=== PATIENT | female | born 1945 | race Caucasian/White ===

== ENCOUNTER 2016-06-13 10:28 | Outpatient (CLI) | payer MEDICARE, MEDICAID | END 2016-06-13 10:29 | disposition home or self-care (01) | DX: Z12.31 Encounter for screening mammogram for malignant neoplasm of breast (principal); Z80.3 Family history of malignant neoplasm of breast ==

== ENCOUNTER 2016-06-17 09:05 | Outpatient (CLI) | payer MEDICARE, MEDICAID | END 2016-06-17 09:06 | disposition home or self-care (01) | DX: E11.9 Type 2 diabetes mellitus without complications (principal); I10 Essential (primary) hypertension; K31.9 Disease of stomach and duodenum, unspecified ==

== ENCOUNTER 2016-09-23 06:38 | Outpatient (CLI) | payer MEDICARE, MEDICAID ==
[2016-09-23] MEDS ORDERED: GADOBUTROL 10 MMOL/10 ML VIAL IVP ONE (08:24)
== END 2016-09-23 06:39 | disposition home or self-care (01) ==
DX: Q28.3 Other malformations of cerebral vessels (principal); I67.82 Cerebral ischemia; Z86.73 Personal history of transient ischemic attack (TIA), and cerebral infarction without residual deficits
CPT/HCPCS: 70553; 82565; A9585

== ENCOUNTER 2017-02-07 10:17 | Outpatient (CLI) | payer MEDICARE, MEDICAID ==
[2017-02-07 18:36] LABS: CALCIUM 9.2 mg/dL (8.5-10.3); CREATININE 0.7 mg/dL (0.4-1.0); POTASSIUM 3.9 mmol/L (3.5-5.0)
[2017-02-07 20:32] LABS: HEMOGLOBIN A1C 1.14 g/dL
== END 2017-02-07 10:18 | disposition home or self-care (01) ==
LOC: LAB.F 10:17
PROVIDERS: ATTEND Nurse Practitioner Family
DX: E11.9 Type 2 diabetes mellitus without complications (principal)
CPT/HCPCS: 36415; 80048; 83036

== ENCOUNTER 2017-03-03 12:44 | Outpatient (CLI) | payer MEDICARE, MEDICAID ==
--- NOTE | 2017-03-03 15:58 | Ultrasound Report ---
BLADDER ULTRASOUND: 03/03/2017 CLINICAL INDICATION: Incontinence. TECHNIQUE: Real-time scanning was performed with sales and service representative static images obtained. FINDINGS: Prevoid, the urinary bladder measures 8.6 x 7.9 x 7.1 cm. The bladder wall appears normal. Bilateral ureteral jets are visualized. No postvoid residual is present. IMPRESSION: NORMAL BLADDER ULTRASOUND. JOB #: [id number] EXT JOB #:[id number]
== END 2017-03-03 12:45 | disposition home or self-care (01) ==
LOC: DI 12:44
PROVIDERS: ATTEND Nurse Practitioner Family
DX: R32 Unspecified urinary incontinence (principal)
CPT/HCPCS: 76857

== ENCOUNTER 2017-05-05 13:20 | Outpatient (CLI) | payer MEDICARE, MEDICAID ==
[2017-05-05 19:09] LABS: CALCIUM 9.6 mg/dL (8.5-10.3); CREATININE 0.7 mg/dL (0.4-1.0)
[2017-05-05 20:15] LABS: HEMOGLOBIN A1C 0.79 g/dL
== END 2017-05-05 13:21 | disposition home or self-care (01) ==
LOC: LAB.S 13:20
PROVIDERS: ATTEND Nurse Practitioner Family
DX: E11.65 Type 2 diabetes mellitus with hyperglycemia (principal)
CPT/HCPCS: 36415; 80048; 83036

== ENCOUNTER 2017-08-08 14:30 | Outpatient (CLI) | payer MEDICARE, MEDICAID | END 2017-08-08 14:31 | disposition home or self-care (01) | LOC: RT.S 14:30 | PROVIDERS: ATTEND Nurse Practitioner Family | DX: R06.09 Other forms of dyspnea (principal); R07.9 Chest pain, unspecified | CPT/HCPCS: 93005 ==

== ENCOUNTER 2017-08-11 08:00 | Outpatient (CLI) | payer MEDICARE, MEDICAID ==
[2017-08-11 18:05] LABS: BASOPHILS % (AUTO) 0.7 %; EOSINOPHILS % (AUTO) 0.6 %; HGB - HEMOGLOBIN 11.6 g/dL (12.0-16.0); LYMPHOCYTES # (AUTO) 1.8 10^3/uL (1.5-3.5); LYMPHOCYTES % (AUTO) 26.1 %; MEAN CORPUSCULAR HEMOGLOBIN 25.9 pg (27.0-31.0); MEAN CORPUSCULAR HGB CONC 32.4 g/dL (32.0-36.0); MEAN CORPUSCULAR VOLUME 79.8 fL (81.0-99.0); MEAN PLATELET VOLUME 7.8 fL (7.9-10.8); MONOCYTES # (AUTO) 0.6 10^3/uL (0.0-1.0); NEUTROPHILS # (AUTO) 4.3 10^3/uL (1.5-6.6); NEUTROPHILS % (AUTO) 63.6 %; PLT - PLATELET COUNT 335 10^3/uL (130-450); RED CELL DISTRIBUTION WIDTH 13.7 % (12.0-15.0); WHITE BLOOD COUNT 6.7 x10^3/uL (4.8-10.8)
[2017-08-11 18:23] LABS: ALBUMIN 4.2 g/dL (3.2-5.5); ALBUMIN/GLOBULIN RATIO 1.2 (1.0-2.2); ALKALINE PHOSPHATASE 60 IU/L (42-121); ALT ALANINE AMINOTRANSFERASE 37 IU/L (10-60); AST ASPARTATE AMINOTRANSFERASE 29 IU/L (10-42); BILIRUBIN,TOTAL 0.5 mg/dL (0.2-1.0); BUN - BLOOD UREA NITROGEN 17 mg/dL (6-20); CARBON DIOXIDE - CO2 19 mmol/L (21-32); CHLORIDE 105 mmol/L (101-111); CHOL/HDL RATIO 3.5 (<4.4); CHOLESTEROL 105 mg/dL; CREATININE 0.8 mg/dL (0.4-1.0); GFR - MDRD 71 (>89); GLUCOSE 134 mg/dL (70-100); HDL CHOLESTEROL 30 mg/dL; LDL CHOLESTEROL,CALCULATED 53 mg/dL; LDL/HDL RATIO 1.8 (<4.4); SODIUM 135 mmol/L (135-145); TOTAL PROTEIN 7.8 g/dL (6.7-8.2); VLDL CHOLESTEROL 22 mg/dL
[2017-08-11 18:47] LABS: HB2 TOTAL 12.3 g/dL; HEMOGLOBIN A1C 0.74 g/dL; HEMOGLOBIN A1C % 7.7 % (4.6-6.2)
== END 2017-08-11 08:01 | disposition home or self-care (01) ==
LOC: LAB.S 08:00
PROVIDERS: ATTEND Nurse Practitioner Family
DX: R07.9 Chest pain, unspecified (principal); E11.9 Type 2 diabetes mellitus without complications; I10 Essential (primary) hypertension; R06.09 Other forms of dyspnea
CPT/HCPCS: 36415; 80053; 80061; 82043; 83036; 83721; 84443; 85025

== ENCOUNTER 2017-09-25 08:19 | Outpatient (CLI) | payer MEDICARE, MEDICAID ==
--- NOTE | 2017-09-25 11:11 | CARDIAC PROCEDURE NOTE ---
DATE OF SERVICE: 09/25/2017 Physician: AGUSTÍN Levin PRIMARY CARE PROVIDER: AGUSTÍN Levin PROCEDURE: Stress electrocardiogram. PROCEDURE SYMPTOMS: Dyspnea on exertion and atypical chest pain. CARDIAC RISK FACTORS: Age, hypertension, diabetes and hyperlipidemia. PREVIOUS CARDIAC PROCEDURES: NONE. CURRENT SYMPTOMATOLOGY: None. CLINICAL HISTORY: A 71-year-old female who is sedentary without known coronary artery disease. Her metoprolol was held for 24 hours. INITIAL RESTING VITAL SIGNS: Blood pressure 136/82, heart rate 82. Height 63 inches, weight 194 pounds, BMI 34.36. PROCEDURE AND FINDINGS: Patient's identity and verified. Consent signed. After resting echocardiogram images were obtained, the patient performed treadmill exercise using a modified [place] protocol, completing 5 minutes, 02 seconds and an estimated workload of 3.47 metabolic equivalents. Maximum blood pressure was 162/84 with a heart rate of 143 beats per minute or 95% of maximum predicted heart rate for age. The blood pressure response to exercise was normal. Patient stopped because she was out of breath and tiring, and revealed that she had mild chest pain toward the end of exercise, that was relieved by rest. The resting ECG demonstrated normal sinus rhythm with late transition. There was less than 0.5 ST segment depression and no ectopy was seen. Post exercise images were obtained immediately on cessation of exercise. FINAL IMPRESSION 1. Good quality test. 2. No electrocardiographic signs of ischemia, test incomplete, awaiting echocardiographic report. 3. Positive stress test clinically for angina. 4. No ectopy. 5. One minute heart rate recovery is good at heart rate of 125. 6. Under performed compared to predicted exercise time. TD: 09/25/2017 11:10 OZZY
[2017-09-25 17:14] VITALS: BP 132/74
== END 2017-09-25 08:20 | disposition home or self-care (01) ==
LOC: DI 08:19
PROVIDERS: ATTEND Nurse Practitioner Family
DX: R06.09 Other forms of dyspnea (principal); R07.9 Chest pain, unspecified; E11.9 Type 2 diabetes mellitus without complications; I10 Essential (primary) hypertension
CPT/HCPCS: 93351

== ENCOUNTER 2017-10-01 08:38 | Outpatient (CLI) | payer MEDICARE, MEDICAID ==
[2017-10-01 09:14] LABS: CREATININE 0.8 mg/dL (0.4-1.0)
[2017-10-01] MEDS ORDERED: GADOBUTROL 10 MMOL/10 ML SYRINGE IVP ONE (10:22)
--- NOTE | 2017-10-01 16:20 | MRI Report ---
EXAM: MRI BRAIN WITHOUT AND WITH CONTRAST EXAM DATE: 10/01/2017 10:14 AM. CLINICAL HISTORY: Cerebral cavernoma. COMPARISON: MRI brain 06/15/2014. TECHNIQUE: Multiplanar, multisequence T1-weighted and fluid-sensitive MR sequences of the brain were performed. Sequences optimized for routine evaluation. Other: None. IV Contrast: 9 mL Gadavist. FINDINGS: No restricted diffusion signal is present. A 9 mm focus of T1 hypointense signal with some peripheral T1 hyperintense signal is seen in the dors al right aspect of the lower medulla very near the cervicomedullary junction. There is a tiny amount of T2 hyperintense signal along its posterior lateral margin. There is magnetic susceptibility in thi s region. The appearance is stable since the more recent comparison study. Edema this lesion se en on the more remote comparison study has resolved Subcortical and deep white matter FLAIR hyperintensities in the cerebral hemisphere white matter are again seen. These are stable. T1 hypointense and T2 hyperintense signal is seen just superior to the posterior limb of the internal capsule on the right. This is stable. No extra-axial fluid collection is present. Ventricles are normal in size. No enhancing mass is identified in the brain parenchyma. Expected flow voids are seen in the major intracranial vessels at the skull base. No mass is present in either orbit. Cavernous sinuses enhance in symmetric fashion. 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 2. Stable small vessel ischemic change in the cerebral hemisphere white matter bilaterally. [facility] Referring Provider Line: [phone] SITE ID: [id number]
== END 2017-10-01 08:39 | disposition home or self-care (01) ==
LOC: LAB 08:38
PROVIDERS: ATTEND Psychiatry & Neurology Neurology
DX: Q28.3 Other malformations of cerebral vessels (principal)
CPT/HCPCS: 36415; 70553; 82565; A9585

== ENCOUNTER 2017-10-03 13:12 | Outpatient (CLI) | payer MEDICARE, MEDICAID | END 2017-10-03 13:13 | disposition home or self-care (01) | LOC: DI 13:12 | PROVIDERS: ATTEND Nurse Practitioner Family | DX: I51.9 Heart disease, unspecified (principal); I51.7 Cardiomegaly; I08.0 Rheumatic disorders of both mitral and aortic valves | CPT/HCPCS: 93306 ==

== ENCOUNTER 2018-01-30 12:34 | Outpatient (CLI) | payer MEDICARE, MEDICAID ==
[2018-01-30 18:53] LABS: CALCIUM 9.2 mg/dL (8.5-10.3); CREATININE 0.8 mg/dL (0.4-1.0)
[2018-01-30 18:54] LABS: HB2 TOTAL 12.5 g/dL; HEMOGLOBIN A1C 0.84 g/dL; HEMOGLOBIN A1C % 8.3 % (4.6-6.2)
== END 2018-01-30 12:35 | disposition home or self-care (01) ==
LOC: LAB.F 12:34
PROVIDERS: ATTEND Nurse Practitioner Family
DX: E11.9 Type 2 diabetes mellitus without complications (principal)
CPT/HCPCS: 36415; 80048; 83036

== ENCOUNTER 2018-03-12 12:55 | Outpatient (CLI) | payer MEDICARE, MEDICAID ==
--- NOTE | 2018-03-13 09:47 | Mammography Report ---
Reason: SCREENING MAMMO Procedure Date: 03/12/2018 Accession Number: [id number] / [id number] Procedure: MGS - Screening Mammo Dig Bilat CPT Code: FULL RESULT: EXAM: Screening Mammo Dig Bilat DATE: 03/12/2018 1:14 PM CLINICAL HISTORY: Routine screening TECHNIQUE: Bilateral CC and MLO views were obtained. COMPARISON: 03/10/2017, 02/08/2016, 02/03/2015 and 02/17/2013 FINDINGS: There are scattered fibroglandular densities. There is no significant interval change. No suspicious masses, clustered microcalcifications, or regions of architectural distortion are identified. Bilateral nodular densities are stable. IMPRESSION: Benign findings RECOMMENDATION: Routine annual screening unless otherwise clinically indicated. BIRADS CATEGORY 2: Benign findings STANDARD QUALIFYING STATEMENTS: 1. This examination was reviewed with the aid of Computer-Aided Detection (CAD). 2. A negative or benign imaging report should not delay biopsy if clinically suspicious findings are present. Consider surgical consultation if warrented. More than 5% of cancers are not identified by imaging. 3. Dense breasts may obscure an underlying neoplasm.
== END 2018-03-12 12:56 | disposition home or self-care (01) ==
LOC: DI.S 12:55
PROVIDERS: ATTEND Nurse Practitioner Family
DX: Z12.31 Encounter for screening mammogram for malignant neoplasm of breast (principal)
CPT/HCPCS: 77067

== ENCOUNTER 2018-07-31 12:13 | Outpatient (CLI) | payer MEDICARE, MEDICAID ==
--- NOTE | 2018-07-31 15:10 | XRAY Report ---
Reason: ANKLE STIFF,ANKLE JOINT PAINFUL ON MOVEMENT Procedure Date: 07/31/2018 Accession Number: [id number] / [id number] Procedure: XR - Ankle 3 View BILAT CPT Code: FULL RESULT: EXAMS: 1. RIGHT ANKLE RADIOGRAPHY 2. LEFT ANKLE RADIOGRAPHY EXAM DATE: 07/31/2018 12:24 PM. CLINICAL HISTORY: Ankle stiff, ankle joint painful on movement. COMPARISON: None. TECHNIQUE: 3 views each ankle. FINDINGS: Right Ankle: Bones: The bones are qualitatively osteopenic; this limits evaluation for underlying fractures or masses. No fracture or dislocation is seen. Mild inferior and mild posterior calcaneal enthesopathy. Joints: There is a small joint effusion. Ankle mortise is symmetric. No dislocation. Soft Tissues: Normal. No soft tissue swelling. Left Ankle: Bones: The bones are qualitatively osteopenic; this limits evaluation for underlying fractures or masses. No fracture or dislocation is seen. Mild inferior calcaneal enthesopathy. Joints: Normal. No effusion. No subluxations. The ankle mortise is normally aligned. Soft Tissues: Normal. No soft tissue swelling. IMPRESSION: Osteopenia with no fracture or dislocation detected. [facility]
== END 2018-07-31 12:14 | disposition home or self-care (01) ==
LOC: DI 12:13
PROVIDERS: ATTEND Nurse Practitioner
DX: M85.872 Other specified disorders of bone density and structure, left ankle and foot (principal); M85.871 Other specified disorders of bone density and structure, right ankle and foot

== ENCOUNTER 2018-08-18 09:03 | Outpatient (CLI) | payer MEDICARE, MEDICAID ==
[2018-08-18 17:50] LABS: BASOPHILS % (AUTO) 0.4 %; EOSINOPHILS % (AUTO) 0.6 %; LYMPHOCYTES # (AUTO) 1.6 10^3/uL (1.5-3.5); LYMPHOCYTES % (AUTO) 28.3 %; MEAN CORPUSCULAR HEMOGLOBIN 27.1 pg (27.0-31.0); MEAN CORPUSCULAR VOLUME 82.4 fL (81.0-99.0); MEAN PLATELET VOLUME 8.1 fL (7.9-10.8); MONOCYTES # (AUTO) 0.4 10^3/uL (0.0-1.0); MONOCYTES % (AUTO) 6.8 %; NEUTROPHILS # (AUTO) 3.7 10^3/uL (1.5-6.6); NEUTROPHILS % (AUTO) 63.9 %; PLT - PLATELET COUNT 331 10^3/uL (130-450); RED CELL DISTRIBUTION WIDTH 16.1 % (12.0-15.0); WHITE BLOOD COUNT 5.8 x10^3/uL (4.8-10.8)
[2018-08-18 18:06] LABS: ALBUMIN 4.3 g/dL (3.2-5.5); ALBUMIN/GLOBULIN RATIO 1.2 (1.0-2.2); ALKALINE PHOSPHATASE 62 IU/L (42-121); ALT ALANINE AMINOTRANSFERASE 62 IU/L (10-60); AST ASPARTATE AMINOTRANSFERASE 43 IU/L (10-42); BILIRUBIN,TOTAL 0.5 mg/dL (0.2-1.0); BUN - BLOOD UREA NITROGEN 16 mg/dL (6-20); CALCIUM 9.2 mg/dL (8.5-10.3); CARBON DIOXIDE - CO2 22 mmol/L (21-32); CHLORIDE 105 mmol/L (101-111); CHOL/HDL RATIO 3.2 (<4.4); CHOLESTEROL 124 mg/dL; CREATININE 0.7 mg/dL (0.4-1.0); GFR - MDRD 82 (>89); GLUCOSE 194 mg/dL (70-100); HDL CHOLESTEROL 39 mg/dL; LDL CHOLESTEROL,CALCULATED 63 mg/dL; LDL/HDL RATIO 1.6 (<4.4); SODIUM 137 mmol/L (135-145); TOTAL PROTEIN 7.8 g/dL (6.7-8.2); VLDL CHOLESTEROL 22 mg/dL
[2018-08-18 18:47] LABS: HB2 TOTAL 13.6 g/dL; HEMOGLOBIN A1C 0.85 g/dL; HEMOGLOBIN A1C % 7.9 % (4.6-6.2)
== END 2018-08-18 09:04 | disposition home or self-care (01) ==
LOC: LAB.F 09:03
PROVIDERS: ATTEND Nurse Practitioner
DX: Z00.00 Encounter for general adult medical examination without abnormal findings (principal); E11.65 Type 2 diabetes mellitus with hyperglycemia
CPT/HCPCS: 36415; 80053; 80061; 82043; 83036; 83721; 84443; 85025

== ENCOUNTER 2018-09-18 07:31 | Outpatient (CLI) | payer MEDICARE, MEDICAID ==
[2018-09-18] MEDS ORDERED: GADOBUTROL 10 MMOL/10 ML VIAL ONE (07:45)
[2018-09-18] MEDS ORDERED: GADOBUTROL 10 MMOL/10 ML VIAL IVP ONE (08:09)
--- NOTE | 2018-09-18 16:03 | MRI Report ---
Reason: CAVERNOMA Procedure Date: 09/18/2018 Accession Number: [id number] / [id number] Procedure: MRI - Brain W/WO CPT Code: FULL RESULT: EXAM: MRI BRAIN WITHOUT AND WITH CONTRAST EXAM DATE: 09/18/2018 08:43 AM. 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 COMPARISON: MRI brain 10/01/2017 and 06/15/2014. TECHNIQUE: Multiplanar, multisequence T1-weighted and fluid-sensitive MR sequences of the brain were performed. Sequences optimized for routine evaluation. Other: None. IV Contrast: 9 cc Gadavist. FINDINGS: No cerebellar tonsillar ectopia is present. No abnormal restricted diffusion signal is identified in the brain parenchyma. There is a focus of low T2 and FLAIR signal in the dorsal right lower medulla which demonstrates blooming on the gradient echo sequence. There is no significant T1 shortening in this region. There is no vasogenic edema in the adjacent medulla. The appearance is similar to the more remote comparison study. No focus of magnetic susceptibility has developed in the supratentorial brain. Age-appropriate prominence of the ventricles and sulci is stable. FLAIR hyperintensities are seen involving the subcortical and deep white matter of each cerebral hemisphere. This appearance is unchanged over the exams reviewed. A focus of T1 hypointense and T2 hyperintense signal is seen just superior to the posterior limb of the internal capsule on the right and is stable. There is an expected flow void in the major intracranial vessels at the skull base. There is an expected flow void in the superior sagittal sinus. There might be minimal enhancement at the periphery of this lesion. The appearance is unchanged on the postcontrast images. No enhancing mass is present in either cerebellopontine angle or internal auditory canal. No abnormal enhancement has developed in the supratentorial compartment. Expected enhancement is seen in the transverse sinus bilaterally and in the superior sagittal sinus. IMPRESSION: 1. Stable cavernous malformation in the lower dorsal right medulla over the exams reviewed. There are no MRI findings to suggest recent internal hemorrhage. This is stable dating back to the more remote comparison study from 06/15/2014. 2. Stable small vessel ischemic change in the cerebral hemisphere white matter bilaterally [facility]
== END 2018-09-18 07:32 | disposition home or self-care (01) ==
LOC: DI 07:31
PROVIDERS: ATTEND Psychiatry & Neurology Neurology
DX: Q28.3 Other malformations of cerebral vessels (principal); I67.82 Cerebral ischemia
CPT/HCPCS: 70553; A9585

== ENCOUNTER 2019-01-27 11:43 | Emergency (ER) | payer MEDICARE, MEDICAID ==
[2019-01-27 12:26] LABS: BASOPHILS % (AUTO) 0.3 %; EOSINOPHILS % (AUTO) 0.5 %; HGB - HEMOGLOBIN 13.5 g/dL (12.0-16.0); LYMPHOCYTES # (AUTO) 1.8 10^3/uL (1.5-3.5); LYMPHOCYTES % (AUTO) 23.7 %; MEAN CORPUSCULAR HEMOGLOBIN 28.7 pg (27.0-31.0); MEAN CORPUSCULAR VOLUME 84.3 fL (81.0-99.0); MONOCYTES # (AUTO) 0.5 10^3/uL (0.0-1.0); MONOCYTES % (AUTO) 6.5 %; NEUTROPHILS # (AUTO) 5.3 10^3/uL (1.5-6.6); NEUTROPHILS % (AUTO) 68.6 %; PLT - PLATELET COUNT 328 10^3/uL (130-450); RED BLOOD COUNT 4.71 10^6/uL (4.20-5.40); WHITE BLOOD COUNT 7.7 x10^3/uL (4.8-10.8)
[2019-01-27 12:56] LABS: ALBUMIN 4.4 g/dL (3.2-5.5); ALBUMIN/GLOBULIN RATIO 1.1 (1.0-2.2); BILIRUBIN,TOTAL 0.7 mg/dL (0.2-1.0); CALCIUM 10.2 mg/dL (8.5-10.3); CREATININE 0.9 mg/dL (0.4-1.0); TOTAL PROTEIN 8.5 g/dL (6.7-8.2)
--- NOTE | 2019-01-27 13:01 | XRAY Report ---
Reason: cp Procedure Date: 01/27/2019 Accession Number: [id number] / [id number] Procedure: XR - Chest 1 View X-Ray CPT Code: 70556 FULL RESULT: EXAM: CHEST RADIOGRAPHY EXAM DATE: 01/27/2019 12:15 PM. CLINICAL HISTORY: Cp. COMPARISON: CHEST 2 VIEW PA/LAT 12/27/2014 2:03 PM. TECHNIQUE: 1 view. FINDINGS: Lungs/Pleura: No focal opacities evident. No pleural effusion. No pneumothorax. Mediastinum: Within exam limitations, the cardiomediastinal contour is normal. Other: None. IMPRESSION: No focal consolidation. [facility]
--- NOTE | 2019-01-27 14:34 | ED Physician Documentation ---
History of Present Illness - Stated complaint Stated Complaint: CP/REYES - Chief complaint Chief Complaint: Cardiac - Additonal information Additional information: This is a 73-year-old female with history of diabetes, hypertension, sleep apnea, who presents with chest pain and headache. Patient states that she woke up at 230 this morning and she had some chest pain which is in the center of her chest, and dull/pressure-like. It is non-radiating. She took nitroglycerin with some relief, but her chest pain has persisted on a low level throughout the day. She states she has chest pain almost daily but this was somewhat worse than usual. She had a stress test 1 year ago which was reportedly okay. She has never been catheterized. She also has had a mild headache which is bifrontal, gradual in onset, and currently mild. 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 In triage she reported that she was concerned for a TIA, talking the patient she states that she looked at her pupils this morning and she did not think that they were reacting very well, so she thought this might be a TIA. She denies any weakness, numbness of her baseline, she denies any facial droop, slurred speech, or confusion. Her corroborates the story. Review of Systems Constitutional: denies: Fever Eyes: denies: Loss of vision Nose: denies: Rhinorrhea / runny nose Cardiac: reports: Chest pain / pressure Respiratory: denies: Hemoptysis GI: denies: Abdominal Pain : denies: Dysuria Skin: denies: Rash Neurologic: reports: Generalized weakness Immunocompromised: denies: Immunocompromised PD PAST MEDICAL HISTORY - Past Medical History Cardiovascular: Hypertension, High cholesterol, Murmur Respiratory: Asthma, Sleep apnea Endocrine/Autoimmune: Type 2 diabetes, Other GI: GERD, Other : None HEENT: Chronic vision loss, Chronic sinusitis Psych: Bipolar disorder Musculoskeletal: Chronic back pain Derm: None - Past Surgical History Past Surgical History: Yes General: Cholecystectomy, EGD, Other Ortho: Shoulder arthroplasty, Other /PROFESSOR OF RHETORIC: Hysterectomy, Other HEENT: Rhinoplasty - Present Medications Home Medications: Ambulatory Orders Medication Instructions Recorded Confirmed metFORMIN [Glucophage] 1,000 mg ORAL BID 06/15/14 01/08/18 Gabapentin 700 mg ORAL TID 12/27/14 01/08/18 chlorproMAZINE [Thorazine] 10 mg ORAL TID 12/27/14 01/08/18 Baclofen 15 mg PO TID 08/11/15 01/08/18 Metoprolol Succinate [Toprol Xl] 100 mg PO DAILY 08/11/15 01/08/18 Omeprazole [Prilosec] 40 mg PO DAILY 08/11/15 01/08/18 amLODIPine [Norvasc] 5 mg PO BID 08/11/15 01/08/18 glipiZIDE [Glucotrol] 10 mg PO DAILY 08/11/15 01/08/18 raNITIdine [Zantac] 150 mg PO BID 08/11/15 01/08/18 Aspirin/Dipyridamole [Aggrenox] 1 each PO BID 02/20/17 01/08/18 Atorvastatin Calcium 40 mg PO QPM 02/20/17 01/08/18 Losartan [Cozaar] 50 mg PO DAILY 02/20/17 01/08/18 Metoclopramide HCl 5 mg PO TID 02/20/17 01/08/18 - Allergies Allergies/Adverse Reactions: Allergies Allergy/AdvReac Type Severity Reaction Status Date / Time Tissue Plasminogen Activator AdvReac Unknown Uncoded 01/27/19 11:52 - Social History Does the pt smoke?: No Smoking Status: Former smoker Does the pt drink ETOH?: No Does the pt have substance abuse?: No - Immunizations Immunizations are current?: Yes PD ED PE NORMAL - Vitals Vital signs reviewed: Yes - General General: Alert and oriented X 3, No acute distress - HEENT HEENT: PERRL - Neck Neck: Supple, no meningeal sign - Cardiac Cardiac: RRR, No murmur - Respiratory Respiratory: Clear bilaterally - Abdomen Abdomen: Soft, Non tender, Non distended - Derm Derm: Warm and dry - Extremities Extremities: No deformity - Neuro Neuro: Alert and oriented X 3, exhibit designer 2-12 intact, Normal speech, Other (Patient has 4 out of 5 strength with insurance operations rep on the right hand, finger abduction, and elbow extension, which patient states is her baseline after CVA. Otherwise is 5 out of 5 strength With left hand squeeze, left finger abduction, elbow extension. 5 out of 5 strength bilaterally with elbow flexion, shoulder abduction, hip extension, ankle dorsiflexion plantarflexion. Sensation to light touch intact over face and all extremities. Pupils equal round reactive light, extraocular muscles are intact, palate elevates normally and symmetrically bilaterally, she is strong bite with her masseters, and her face is symmetric with smiling and with tongue protrusion.with) - Psych Psych: Normal mood, Normal affect Results - Vitals Vitals: Vital Signs - 24 hr 01/27/19 01/27/19 01/27/19 11:48 15:07 16:37 Temperature 36.2 C L Heart Rate 70 68 80 Respiratory 17 16 20 Rate Blood Pressure 144/80 H 136/80 H 126/84 H O2 Saturation 98 98 99 01/27/19 17:05 Temperature Heart Rate 78 Respiratory 18 Rate Blood Pressure 134/82 H O2 Saturation 98 Oxygen O2 Source Room air - EKG (time done) 11:59 Other comments: Other comments (Rate 68, rhythm sinus, axis normal. There are inferior Q waves, no significant ST depression or elevation. RSR' pattern in V5 & V6, similar in appearance to past EKG. ) - Labs Labs: Laboratory Tests 01/27/19 01/27/19 01/27/19 12:15 12:15 15:03 WBC 7.7 RBC 4.71 Hgb 13.5 Hct 39.7 MCV 84.3 MCH 28.7 MCHC 34.0 RDW 13.0 Plt Count 328 MPV 9.0 Neut # (Auto) 5.3 Lymph # (Auto) 1.8 [place] # (Auto) 0.5 Eos # (Auto) 0.0 Baso # (Auto) 0.0 Absolute Nucleated RBC 0.00 Nucleated RBC % 0.0 Sodium 138 Potassium 4.0 Chloride 103 Carbon Dioxide 23 Anion Gap 12.0 BUN 17 Creatinine 0.9 Estimated GFR (MDRD) 62 L Glucose 192 H Calcium 10.2 Total Bilirubin 0.7 AST 33 ALT 57 Alkaline Phosphatase 59 Troponin I High Sens 4.3 Total Protein 8.5 H Albumin 4.4 Globulin 4.1 Albumin/Globulin Ratio 1.1 Lipase 28 - Rads (name of study) Chest XR Radiology: Other (No acute cardiopulmonary abnormality) PD MEDICAL DECISION MAKING - ED course ED course: On exam patient is well appearing. EKG shows no significant change from prior, no convincing signs of ischemia or dysrhythmia. CXR shows no acute abnormality. Her labs are unremarkable and a high-sensitivity troponin is normal. Given her pain has been ongoing for ~12 hours at this time, and has been improving during this time, a single troponin is sufficient. PE highly unlikely given patient's vital signs, history, and lack of signs of DVT or history of blood clots. On repeat exam patient is feeling improved. She has chest pain almost daily with negative cardiac work ups in the past and follow up with her community organization director already scheduling in the next week. I discussed with her that she has many cardiac risk factors and she is a moderate risk for major adverse cardiac event despite her reassuring work up today. She declines admission and would prefer to follow up as an outpatient. Given she is feeling better and does have close cardiology follow up, I think this is reasonable. She understands that she may return to the ED at any time and should do so with any new or worsening symptoms. Patient agrees and was discharged in the care of her . Departure - Departure Disposition: 01 Home, Self Care Clinical Impression: Chest pain Qualifiers: Chest pain type: unspecified Qualified Code(s): R07.9 - Chest pain, unspecified Condition: Good Instructions: ED Chest Pain Atypical Unkn Cause Follow-Up: Your,community organization director [Other] (As scheduled in the next week) Comments: You were seen today for chest pain. Your labs and x-ray look okay at this time, but it is still possible that this pain is caused by stress or strain on your heart as you do have many risk factors for heart problems. Follow-up as schedul ed as soon as possible with your community organization director. If you develop any recurrent, or worsening chest pain, shortness of breath, nausea, or any other symptoms, return to the emergency department immediately, you may need to be admitted for further testing. Discharge Date/Time: 01/27/19 17:07
[2019-01-27 17:06] VITALS: BP 134/82
== END 2019-01-27 17:07 | disposition home or self-care (01) ==
LOC: ED 11:43
DX: R07.9 Chest pain, unspecified (principal); E11.40 Type 2 diabetes mellitus with diabetic neuropathy, unspecified; Z79.84 Long term (current) use of oral hypoglycemic drugs; I10 Essential (primary) hypertension; G47.30 Sleep apnea, unspecified; Z87.891 Personal history of nicotine dependence
CPT/HCPCS: 36415; 71045; 80053; 83690; 84484; 85025; 93005; 99284

== ENCOUNTER 2019-02-24 12:19 | Outpatient (CLI) | payer MEDICARE, MEDICAID ==
[2019-02-24 18:00] LABS: CREATININE 0.8 mg/dL (0.4-1.0)
== END 2019-02-24 12:20 | disposition home or self-care (01) ==
LOC: LAB.S 12:19
PROVIDERS: ATTEND Internal Medicine Cardiovascular Disease
DX: I10 Essential (primary) hypertension (principal); I25.10 Atherosclerotic heart disease of native coronary artery without angina pectoris; I48.0 Paroxysmal atrial fibrillation; R06.09 Other forms of dyspnea
CPT/HCPCS: 36415; 80048

== ENCOUNTER 2019-03-19 09:10 | Outpatient (CLI) | payer MEDICARE, MEDICAID ==
[2019-03-19 18:00] LABS: CALCIUM 9.4 mg/dL (8.5-10.3); CREATININE 0.8 mg/dL (0.4-1.0)
[2019-03-19 19:29] LABS: HB2 TOTAL 13.5 g/dL; HEMOGLOBIN A1C 0.67 g/dL; HEMOGLOBIN A1C % 6.7 % (4.6-6.2)
== END 2019-03-19 09:11 | disposition home or self-care (01) ==
LOC: LAB.S 09:10
PROVIDERS: ATTEND Registered Nurse
DX: E11.65 Type 2 diabetes mellitus with hyperglycemia (principal)
CPT/HCPCS: 36415; 80048; 83036

== ENCOUNTER 2019-12-21 09:23 | Outpatient (CLI) | payer MEDICARE, MEDICAID ==
[2019-12-21 15:41] LABS: BASOPHILS % (AUTO) 0.5 %; EOSINOPHILS # (AUTO) 0.1 10^3/uL (0.0-0.7); EOSINOPHILS % (AUTO) 0.8 %; HGB - HEMOGLOBIN 12.5 g/dL (12.0-16.0); LYMPHOCYTES # (AUTO) 1.7 10^3/uL (1.5-3.5); LYMPHOCYTES % (AUTO) 28.8 %; MEAN CORPUSCULAR HEMOGLOBIN 31.2 pg (27.0-31.0); MEAN CORPUSCULAR HGB CONC 34.7 g/dL (32.0-36.0); MEAN CORPUSCULAR VOLUME 89.8 fL (81.0-99.0); MEAN PLATELET VOLUME 9.5 fL (7.9-10.8); MONOCYTES # (AUTO) 0.4 10^3/uL (0.0-1.0); MONOCYTES % (AUTO) 6.8 %; NEUTROPHILS # (AUTO) 3.8 10^3/uL (1.5-6.6); NEUTROPHILS % (AUTO) 62.8 %; PLT - PLATELET COUNT 350 10^3/uL (130-450); RED BLOOD COUNT 4.01 10^6/uL (4.20-5.40); RED CELL DISTRIBUTION WIDTH 12.6 % (12.0-15.0); WHITE BLOOD COUNT 6.1 x10^3/uL (4.8-10.8)
[2019-12-21 16:02] LABS: ALBUMIN 4.1 g/dL (3.2-5.5); ALBUMIN/GLOBULIN RATIO 1.1 (1.0-2.2); ALKALINE PHOSPHATASE 53 IU/L (42-121); ALT ALANINE AMINOTRANSFERASE 40 IU/L (10-60); AST ASPARTATE AMINOTRANSFERASE 28 IU/L (10-42); BILIRUBIN,TOTAL 0.6 mg/dL (0.2-1.0); BUN - BLOOD UREA NITROGEN 21 mg/dL (6-20); CALCIUM 9.1 mg/dL (8.5-10.3); CARBON DIOXIDE - CO2 20 mmol/L (21-32); CHLORIDE 103 mmol/L (101-111); CHOL/HDL RATIO 4.9 (<4.4); CHOLESTEROL 128 mg/dL; CREATININE 0.9 mg/dL (0.4-1.0); GLUCOSE 127 mg/dL (70-100); HDL CHOLESTEROL 26 mg/dL; LDL CHOLESTEROL,CALCULATED 60 mg/dL; LDL/HDL RATIO 2.3 (<4.4); SODIUM 136 mmol/L (135-145); TOTAL PROTEIN 7.7 g/dL (6.7-8.2); VLDL CHOLESTEROL 42 mg/dL
[2019-12-21 16:13] LABS: HB2 TOTAL 13.8 g/dL; HEMOGLOBIN A1C 0.52 g/dL; HEMOGLOBIN A1C % 5.6 % (4.6-6.2)
== END 2019-12-21 09:24 | disposition home or self-care (01) ==
LOC: LAB.S 09:23
PROVIDERS: ATTEND Registered Nurse
DX: R07.89 Other chest pain (principal); E78.5 Hyperlipidemia, unspecified; I20.0 Unstable angina; E11.65 Type 2 diabetes mellitus with hyperglycemia; I10 Essential (primary) hypertension; I51.9 Heart disease, unspecified
CPT/HCPCS: 36415; 80053; 80061; 83036; 83721; 84443; 85025

== ENCOUNTER 2019-12-29 09:58 | Outpatient (CLI) | payer MEDICARE, MEDICAID | END 2019-12-29 09:59 | disposition home or self-care (01) | LOC: DI 09:58 | PROVIDERS: ATTEND Registered Nurse | DX: R00.1 Bradycardia, unspecified (principal); I07.1 Rheumatic tricuspid insufficiency; I70.0 Atherosclerosis of aorta; I35.0 Nonrheumatic aortic (valve) stenosis | CPT/HCPCS: 93306 ==

== ENCOUNTER 2020-08-10 08:56 | Outpatient (CLI) | payer MEDICARE, MEDICAID ==
[2020-08-10 16:28] LABS: CALCIUM 9.4 mg/dL (8.5-10.3); CREATININE 0.8 mg/dL (0.4-1.0); POTASSIUM 3.9 mmol/L (3.5-5.0)
== END 2020-08-10 08:57 | disposition home or self-care (01) ==
LOC: LAB.S 08:56
PROVIDERS: ATTEND Internal Medicine Cardiovascular Disease
DX: R07.9 Chest pain, unspecified (principal)
CPT/HCPCS: 36415; 80048

== ENCOUNTER 2020-08-30 13:40 | Outpatient (CLI) | payer MEDICARE, MEDICAID ==
--- NOTE | 2020-08-31 12:52 | Mammography Report ---
BILATERAL DIGITAL SCREENING MAMMOGRAM 3D/2D: 08/30/2020 CLINICAL: Family history of breast cancer. Comparison is made to exams dated: 03/12/2018 mammogram, 06/13/2016 mammogram, and 09/21/2014 mammogra m - [facility]. There are scattered fibroglandular elements in both breasts. No significant masses, calcifications, or other findings are seen in either breast. There has been no significant interval change. IMPRESSION: NEGATIVE There is no mammographic evidence of malignancy. A 1 year screening mammogram is recommended. This exam was interpreted at Station ID: [id number]. NOTE: For mammograms, a report in lay terms will be sent to the patient. Approximately 15% of breast malignancies will not be visualized mammographically. In the management of a palpable breast mass, a negative mammogram must not discourage biopsy of a clinically suspicious lesion. Electronically Signed By: Felix Strong M.D. ddp/penrad:08/30/2020 14:34:57 ACR BI-RADS Category 1: Negative 3341F PARENCHYMAL PATTERN: (A) - The breast(s) demonstrate(s) scattered fibroglandular densities. BI-RADS CATEGORY: (1) - 1 RECOMMENDATION: (ANNUAL) - Recommend routine annual screening mammography. [id number] 1 year screening LATERALITY: (B)
== END 2020-08-30 13:41 | disposition home or self-care (01) ==
LOC: DI.S 13:40
PROVIDERS: ATTEND Registered Nurse
DX: Z12.31 Encounter for screening mammogram for malignant neoplasm of breast (principal); Z80.3 Family history of malignant neoplasm of breast

== ENCOUNTER 2020-10-31 08:36 | Outpatient (CLI) | payer MEDICARE, MEDICAID ==
[2020-10-31 14:35] LABS: BASOPHILS % (AUTO) 0.2 %; EOSINOPHILS % (AUTO) 0.7 %; HCT - HEMATOCRIT 39.6 % (37.0-47.0); HGB - HEMOGLOBIN 13.5 g/dL (12.0-16.0); LYMPHOCYTES # (AUTO) 1.4 10^3/uL (1.5-3.5); LYMPHOCYTES % (AUTO) 23.7 %; MEAN CORPUSCULAR HEMOGLOBIN 30.5 pg (27.0-31.0); MEAN CORPUSCULAR HGB CONC 34.1 g/dL (32.0-36.0); MEAN CORPUSCULAR VOLUME 89.6 fL (81.0-99.0); MEAN PLATELET VOLUME 9.6 fL (7.9-10.8); MONOCYTES # (AUTO) 0.4 10^3/uL (0.0-1.0); MONOCYTES % (AUTO) 6.7 %; NEUTROPHILS % (AUTO) 68.4 %; PLT - PLATELET COUNT 269 10^3/uL (130-450); RED BLOOD COUNT 4.42 10^6/uL (4.20-5.40); RED CELL DISTRIBUTION WIDTH 12.5 % (12.0-15.0); WHITE BLOOD COUNT 5.8 x10^3/uL (4.8-10.8)
[2020-10-31 15:09] LABS: CREATININE,URINE 177.1 mg/dL; MICROALBUM/CREATININE RATIO,UR 22.6 ug/mg (<30.0)
[2020-10-31 15:23] LABS: ALBUMIN 4.5 g/dL (3.2-5.5); ALBUMIN/GLOBULIN RATIO 1.3 (1.0-2.2); ALKALINE PHOSPHATASE 53 IU/L (42-121); ALT ALANINE AMINOTRANSFERASE 57 IU/L (10-60); AST ASPARTATE AMINOTRANSFERASE 29 IU/L (10-42); BILIRUBIN,TOTAL 0.6 mg/dL (0.2-1.0); BUN - BLOOD UREA NITROGEN 14 mg/dL (6-20); CALCIUM 9.2 mg/dL (8.5-10.3); CARBON DIOXIDE - CO2 23 mmol/L (21-32); CHLORIDE 103 mmol/L (101-111); CHOL/HDL RATIO 3.4 (<4.4); CHOLESTEROL 151 mg/dL; CREATININE 0.7 mg/dL (0.4-1.0); GFR - MDRD 82 (>89); GLUCOSE 208 mg/dL (70-100); HDL CHOLESTEROL 45 mg/dL; LDL CHOLESTEROL,CALCULATED 77 mg/dL; LDL/HDL RATIO 1.7 (<4.4); POTASSIUM 3.7 mmol/L (3.5-5.0); SODIUM 137 mmol/L (135-145); TOTAL PROTEIN 7.9 g/dL (6.7-8.2); TRIGLYCERIDES 145 mg/dL; VLDL CHOLESTEROL 29 mg/dL
[2020-10-31 15:26] LABS: THYROID STIMULATING HORMONE 2.82 uIU/mL (0.34-5.60)
[2020-10-31 20:46] LABS: ESTIMATED AVERAGE GLUCOSE 117 mg/dL (70-100); HEMOGLOBIN A1c% 5.7 % (4.27-6.07)
== END 2020-10-31 08:37 | disposition home or self-care (01) ==
LOC: LAB.S 08:36
PROVIDERS: ATTEND Psychiatry & Neurology Neurology
DX: Q28.3 Other malformations of cerebral vessels (principal); E11.9 Type 2 diabetes mellitus without complications; E78.5 Hyperlipidemia, unspecified; I10 Essential (primary) hypertension
CPT/HCPCS: 36415; 80053; 80061; 82043; 82570; 83036; 83721; 84443; 85025

== ENCOUNTER 2021-09-13 07:40 | Outpatient (CLI) | payer MEDICARE, MEDICAID ==
[2021-09-13 15:40] LABS: CREATININE,URINE 200.4 mg/dL
[2021-09-13 15:51] LABS: CALCIUM 9.6 mg/dL (8.5-10.3); CREATININE 0.8 mg/dL (0.4-1.0); POTASSIUM 3.6 mmol/L (3.5-5.0)
== END 2021-09-13 07:41 | disposition home or self-care (01) ==
LOC: LAB.S 07:40
PROVIDERS: ATTEND Registered Nurse
DX: E11.9 Type 2 diabetes mellitus without complications (principal); E78.5 Hyperlipidemia, unspecified; I10 Essential (primary) hypertension
CPT/HCPCS: 36415; 80048; 81599; 82043; 82570; 83036

== ENCOUNTER 2022-09-09 08:08 | Outpatient (CLI) | payer MEDICARE, MEDICAID ==
[2022-09-09 14:45] LABS: BASOPHILS % (AUTO) 0.5 %; EOSINOPHILS % (AUTO) 0.5 %; HCT - HEMATOCRIT 44.1 % (37.0-47.0); HGB - HEMOGLOBIN 15.3 g/dL (12.0-16.0); LYMPHOCYTES # (AUTO) 1.3 10^3/uL (1.5-3.5); LYMPHOCYTES % (AUTO) 23.2 %; MEAN CORPUSCULAR HEMOGLOBIN 30.4 pg (27.0-31.0); MEAN CORPUSCULAR HGB CONC 34.7 g/dL (32.0-36.0); MEAN CORPUSCULAR VOLUME 87.5 fL (81.0-99.0); MEAN PLATELET VOLUME 9.2 fL (7.9-10.8); MONOCYTES # (AUTO) 0.5 10^3/uL (0.0-1.0); MONOCYTES % (AUTO) 8.5 %; NEUTROPHILS # (AUTO) 3.9 10^3/uL (1.5-6.6); PLT - PLATELET COUNT 257 10^3/uL (130-450); RED BLOOD COUNT 5.04 10^6/uL (4.20-5.40); RED CELL DISTRIBUTION WIDTH 12.5 % (12.0-15.0); WHITE BLOOD COUNT 5.8 x10^3/uL (4.8-10.8)
[2022-09-09 15:25] LABS: ALBUMIN 4.6 g/dL (3.2-5.5); ALBUMIN/GLOBULIN RATIO 1.4 (1.0-2.2); ALKALINE PHOSPHATASE 79 IU/L (42-121); ALT ALANINE AMINOTRANSFERASE 40 IU/L (10-60); AST ASPARTATE AMINOTRANSFERASE 27 IU/L (10-42); BILIRUBIN,TOTAL 0.7 mg/dL (0.2-1.0); BUN - BLOOD UREA NITROGEN 11 mg/dL (6-20); CALCIUM 9.4 mg/dL (8.5-10.3); CARBON DIOXIDE - CO2 25 mmol/L (21-32); CHLORIDE 104 mmol/L (101-111); CHOL/HDL RATIO 4.5 (<4.4); CHOLESTEROL 225 mg/dL; CREATININE 0.8 mg/dL (0.4-1.0); GFR - MDRD 70 (>89); GLUCOSE 189 mg/dL (70-100); HDL CHOLESTEROL 50 mg/dL; LDL CHOLESTEROL,CALCULATED 153 mg/dL; LDL/HDL RATIO 3.1 (<4.4); POTASSIUM 3.7 mmol/L (3.5-5.0); SODIUM 136 mmol/L (135-145); TRIGLYCERIDES 111 mg/dL; VLDL CHOLESTEROL 22 mg/dL
[2022-09-09 15:37] LABS: THYROID STIMULATING HORMONE 3.75 uIU/mL (0.34-5.60)
[2022-09-09 21:17] LABS: ESTIMATED AVERAGE GLUCOSE 134 mg/dL (70-100); HEMOGLOBIN A1c% 6.3 % (4.27-6.07)
== END 2022-09-09 08:09 | disposition home or self-care (01) ==
LOC: LAB.S 08:08
PROVIDERS: ATTEND Registered Nurse
DX: I10 Essential (primary) hypertension (principal); E78.5 Hyperlipidemia, unspecified; E11.8 Type 2 diabetes mellitus with unspecified complications
CPT/HCPCS: 36415; 80053; 80061; 83036; 83721; 84443; 85025

== ENCOUNTER 2023-08-29 08:40 | Outpatient (CLI) | payer MEDICARE, MEDICAID ==
[2023-08-29 14:42] LABS: BASOPHILS % (AUTO) 0.4 %; EOSINOPHILS % (AUTO) 0.4 %; HCT - HEMATOCRIT 42.2 % (37.0-47.0); HGB - HEMOGLOBIN 14.1 g/dL (12.0-16.0); LYMPHOCYTES # (AUTO) 1.4 10^3/uL (1.5-3.5); MEAN CORPUSCULAR HEMOGLOBIN 29.7 pg (27.0-31.0); MEAN CORPUSCULAR HGB CONC 33.4 g/dL (32.0-36.0); MEAN CORPUSCULAR VOLUME 88.8 fL (81.0-99.0); MEAN PLATELET VOLUME 9.3 fL (7.9-10.8); MONOCYTES # (AUTO) 0.5 10^3/uL (0.0-1.0); MONOCYTES % (AUTO) 7.1 %; NEUTROPHILS # (AUTO) 5.1 10^3/uL (1.5-6.6); NEUTROPHILS % (AUTO) 71.7 %; PLT - PLATELET COUNT 276 10^3/uL (130-450); RED BLOOD COUNT 4.75 10^6/uL (4.20-5.40); RED CELL DISTRIBUTION WIDTH 12.8 % (12.0-15.0); WHITE BLOOD COUNT 7.1 x10^3/uL (4.8-10.8)
[2023-08-29 15:03] LABS: CREATININE,URINE 69.7 mg/dL; THYROID STIMULATING HORMONE 3.11 uIU/mL (0.34-5.60)
[2023-08-29 15:05] LABS: ALBUMIN 4.2 g/dL (3.2-5.5); ALBUMIN/GLOBULIN RATIO 1.3 (1.0-2.2); ALKALINE PHOSPHATASE 61 IU/L (42-121); ALT ALANINE AMINOTRANSFERASE 22 IU/L (10-60); AST ASPARTATE AMINOTRANSFERASE 18 IU/L (10-42); BILIRUBIN,TOTAL 0.7 mg/dL (0.2-1.0); BUN - BLOOD UREA NITROGEN 21 mg/dL (6-20); CALCIUM 9.8 mg/dL (8.5-10.3); CARBON DIOXIDE - CO2 22 mmol/L (21-32); CHLORIDE 107 mmol/L (101-111); CHOL/HDL RATIO 3.4 (<4.4); CHOLESTEROL 162 mg/dL; CREATININE 0.8 mg/dL (0.6-1.3); GFR - MDRD 70 (>89); GLUCOSE 110 mg/dL (74-104); HDL CHOLESTEROL 47 mg/dL; LDL CHOLESTEROL,CALCULATED 95 mg/dL; POTASSIUM 3.9 mmol/L (3.5-4.5); SODIUM 136 mmol/L (135-145); TOTAL PROTEIN 7.4 g/dL (6.4-8.9); TRIGLYCERIDES 98 mg/dL (48-352); VLDL CHOLESTEROL 20 mg/dL
[2023-08-29 15:10] LABS: MICROALBUMIN,URINE < 0.7 mg/dL
[2023-08-29 21:24] LABS: ESTIMATED AVERAGE GLUCOSE 111 mg/dL (70-100); HEMOGLOBIN A1c% 5.5 % (4.27-6.07)
== END 2023-08-29 08:41 | disposition home or self-care (01) ==
LOC: LAB.S 08:40
PROVIDERS: ATTEND Registered Nurse
DX: E11.8 Type 2 diabetes mellitus with unspecified complications (principal); Z13.228 Encounter for screening for other metabolic disorders; Z13.220 Encounter for screening for lipoid disorders; Z13.29 Encounter for screening for other suspected endocrine disorder; Z13.0 Encounter for screening for diseases of the blood and blood-forming organs and certain disorders involving the immune mechanism
CPT/HCPCS: 36415; 80053; 80061; 82043; 82570; 83036; 83721; 84443; 85025